=== PATIENT | male | born 1965 | race Caucasian/White ===

== ENCOUNTER 2017-08-27 13:06 | Emergency (ER) | payer SELFPAY ==
[~2017-08-27] VITALS: Ht 182.9 cm; Wt 74.8 kg
[2017-08-27 13:22] VITALS: BP 136/86
[2017-08-27] MEDS ORDERED: AZITHROMYCIN 250 MG TAB PO ONE (13:25)
[2017-08-27] MEDS ORDERED: cefTRIAXone 250 MG in LIDOCAINE 1% ***ER ONLY *** 0.9 ML IM ONE (13:25)
[2017-08-27] MEDS ORDERED: metroNIDAZOLE 250 MG TAB PO ONE (13:25)
--- NOTE | 2017-08-27 13:25 | NUR ---
Patient to bed 07.
--- NOTE | 2017-08-27 13:26 | NUR ---
PT PRESENTS TO ER FOR EVALUATION OF STD EXPOSURE.
--- NOTE | 2017-08-27 14:00 | NUR ---
Patient discharged with v/s stable. Written and verbal after care instructions given and explained. Patient verbalized understanding. Ambulatory with steady gait. All questions addressed prior to discharge. Advised to follow up with PMD.
[2017-08-27 14:17] LABS: APPEARANCE,URINE CLEAR (CLEAR); BILIRUBIN,URINE NEGATIVE (NEGATIVE); BLOOD, URINE 1+ (NEGATIVE); LEUKOCYTE ESTERASE ,URINE NEGATIVE (NEGATIVE); NITRITE, URINE NEGATIVE (NEGATIVE); PH,URINE 5.5 (5.0-9.0); UGLUCOSE NEGATIVE (NEGATIVE)
[2017-08-27 14:19] LABS: COLOR,URINE STRAW (YELLOW)
[2017-08-27 14:28] LABS: RBC,URINE 0-5 (RARE) /HPF (0-5); WBC,URINE NONE SEEN /HPF (0-5)
[2017-08-27 14:37] VITALS: BP 136/86
[2017-08-30 06:09] LABS: CHLAMYDIA TRACHOMATIS AMP DNA Negative (Negative)
== END 2017-08-27 14:00 | disposition home or self-care (01) ==
LOC: MED 13:06
DX: Z20.2 Contact with and (suspected) exposure to infections with a predominantly sexual mode of transmission (principal); Z88.0 Allergy status to penicillin
CPT/HCPCS: 36415; 81001; 87491; 96372; 99284; J0696; J2001